=== PATIENT | female | born 1960 | race Caucasian/White ===

== ENCOUNTER 2016-07-07 10:30 | Outpatient (CLI) | payer MEDICAID ==
[~2016-07-07] VITALS: Ht 157.5 cm; Wt 58.6 kg
[2016-07-07] VITALS (10 sets, daily range): BP systolic 9–143; BP diastolic 61–75; PULSE 64–74; TEMP 97.1–98.4
[~2016-07-07 10:30] MED LIST: AMOXICILLIN875 MG PO; B-12 500 MCG PO; BIAXIN500 MG PO; CALCIUM + D 6001 TA1 PO; CALTRATE 600 +1 TAB PO; CEFTIN 250250 MG/TAB PO; CEFTIN500 MG PO; CELEBREX 200MG200 MG PO; CEPHALEXIN500 M1 PO; DOXYCYCLINE 10100 MG PO; ENBREL50 MG/ML; FISH OIL1000 MG PO; FISH OIL500 MG PO; FLAGYL 250250 MG/TAB PO; FLONASE NASAL S16 GM NS; FLOVENT DI50 MCG/Act IH; GAMUNEX-C1 GM/10 ML; HUMERA IJ; LIDODERM 5% PATC1 EA TP; MOBIC15 MG PO; MULTIPLE VITAMI1 TAB PO; MVI PO; NORCO 325 MG-51 TAB PO; OMNICEF 300MG300 MG PO; PLAQUENIL200 MG PO; PRIL40 PO; PRILOSEC 20MG20 MG PO; PRIVIGEN 100 M100 ML IV; PROAIR HFA0.09 MG/AC IH; PROBIOTIC FORMU1 CAP PO; PROBIOTIC-MAJOR PO; RELAFEN 50500 MG/TAB PO; RITUXAN 10100 MG/10; ROBITUSSIN-AC120 ML PO; TAMIFLU 75MG75 MG PO; VITAMIN B12500 MCG; VITAMIN C BUFF500 MG PO; VITAMIN C1 TAB PO; VITAMIN D1000 IU PO; ZANTAC 150MG T150 MG PO; ZANTAC PO; ZITHROMAX 250M250 MG PO; ZITHROMAX Z PA250 MG PO; ZITHROMAX500 M2 PO; ZOFRAN 4MG T4 MG/TAB PO; ZOFRAN ODT4 MG PO; ZYRTEC 10MG10 MG PO
== END 2016-07-07 18:00 | disposition home or self-care (01) ==
LOC: EUO 10:30
DX: D83.8 Other common variable immunodeficiencies (principal)
CPT/HCPCS: J1459

== ENCOUNTER → 2016-07-21 | Outpatient (CLI) | payer MEDICAID ==
[~2016-07-21] MED LIST changes: +COLESTID 1GM1 G PO; +ULTRAM 50MG TAB50 MG PO
== END ==
LOC: MC.RAD 10:40
DX: Z12.31 Encounter for screening mammogram for malignant neoplasm of breast (principal)

== ENCOUNTER → 2016-07-31 | Outpatient (CLI) | payer MEDICAID ==
[2016-07-31] VITALS (10 sets, daily range): BP systolic 98–129; BP diastolic 62–78; PULSE 61–81; TEMP 98–98.1
[~2016-07-31] VITALS: Ht 157.5 cm; Wt 56.8 kg
== END ==
LOC: EUO 07-28 09:30
DX: D83.8 Other common variable immunodeficiencies (principal)
CPT/HCPCS: J1459

== ENCOUNTER 2016-08-18 09:22 | Outpatient (CLI) | payer MEDICAID ==
[~2016-08-18] VITALS: Ht 157.5 cm; Wt 57.7 kg
[2016-08-18] VITALS (10 sets, daily range): BP systolic 96–121; BP diastolic 53–71; PULSE 61–82; TEMP 97.3–98.3
[~2016-08-18 09:22] MED LIST changes: -COLESTID 1GM1 G PO; -ULTRAM 50MG TAB50 MG PO
== END 2016-08-18 14:00 | disposition home or self-care (01) ==
LOC: EUO 09:22
DX: D83.8 Other common variable immunodeficiencies (principal)
CPT/HCPCS: J1459

== ENCOUNTER 2016-09-11 09:57 | Outpatient (CLI) | payer MEDICAID ==
[2016-09-11] VITALS (10 sets, daily range): BP systolic 96–115; BP diastolic 55–76; PULSE 60–76; TEMP 97.7
[~2016-09-11] VITALS: Ht 157.5 cm; Wt 55.5 kg
[~2016-09-11 09:57] MED LIST changes: -COLESTID 1GM1 G PO; -ULTRAM 50MG TAB50 MG PO
[2016-09-11] MEDS ORDERED: COLESTID 1GM1 G PO (11:12)
== END 2016-09-11 15:11 | disposition home or self-care (01) ==
LOC: EUO 09:57
DX: D83.8 Other common variable immunodeficiencies (principal)
CPT/HCPCS: J1459

== ENCOUNTER → 2016-09-11 | Outpatient (CLI) | payer MEDICAID ==
[~2016-09-11] MED LIST changes: +COLESTID 1GM1 G PO; +ULTRAM 50MG TAB50 MG PO
== END ==
LOC: COL.RAD 09:56
DX: Z53.9 Procedure and treatment not carried out, unspecified reason (principal)

== ENCOUNTER → 2016-09-18 | Outpatient (CLI) | payer MEDICAID ==
[~2016-09-18] MED LIST changes: +COLESTID 1GM1 G PO; +ULTRAM 50MG TAB50 MG PO
== END ==
LOC: COL.RAD 09:45
DX: R10.13 Epigastric pain (principal)

== ENCOUNTER 2016-09-24 11:12 | Emergency (ER) | payer MEDICAID ==
[~2016-09-24] VITALS: Ht 157.5 cm; Wt 54.5 kg
[~2016-09-24 11:12] MED LIST changes: -ULTRAM 50MG TAB50 MG PO
[2016-09-24 11:18] VITALS: TEMP 99.4
[2016-09-24] MEDS ORDERED: ULTRAM 50MG TAB50 MG PO (13:23)
[2016-09-24] MEDS ORDERED: ZITHROMAX 250M250 MG PO (13:23)
[2016-09-24 13:42] VITALS: BP 101/65; PULSE 103
== END 2016-09-24 13:00 | disposition home or self-care (01) ==
LOC: COL.ER 11:12
DX: J18.9 Pneumonia, unspecified organism (principal); F17.210 Nicotine dependence, cigarettes, uncomplicated; D83.9 Common variable immunodeficiency, unspecified; Z79.899 Other long term (current) drug therapy

== ENCOUNTER → 2016-10-06 | Outpatient (CLI) | payer MEDICAID ==
[~2016-10-06] MED LIST changes: +ULTRAM 50MG TAB50 MG PO
== END ==
LOC: COL.RAD 08:03
DX: R10.13 Epigastric pain (principal); R11.0 Nausea
CPT/HCPCS: A9537; J2805

== ENCOUNTER 2016-10-13 10:35 | Outpatient (CLI) | payer MEDICAID ==
[~2016-10-13] VITALS: Ht 157.5 cm; Wt 56.0 kg
[2016-10-13] VITALS (9 sets, daily range): BP systolic 97–112; BP diastolic 51–69; PULSE 65–83; TEMP 98
== END 2016-10-13 15:33 | disposition home or self-care (01) ==
LOC: EUO 10:35
DX: D83.9 Common variable immunodeficiency, unspecified (principal)
CPT/HCPCS: J1459

== ENCOUNTER 2016-11-10 12:34 | Outpatient (CLI) | payer MEDICAID ==
[2016-11-10] VITALS (10 sets, daily range): BP systolic 93–114; BP diastolic 58–73; PULSE 63–81; TEMP 97.9–98.7
[~2016-11-10] VITALS: Ht 157.5 cm; Wt 56.0 kg
== END 2016-11-10 17:45 | disposition home or self-care (01) ==
LOC: EUO 12:34
DX: Z01.89 Encounter for other specified special examinations (principal)
CPT/HCPCS: J1459

== ENCOUNTER 2017-02-23 11:00 | Outpatient (RCR) | payer MEDICAID ==
[2016-12-04] VITALS (10 sets, daily range): BP systolic 88–118; BP diastolic 53–80; PULSE 62–81; TEMP 97.4–97.9
[2016-12-22] VITALS (9 sets, daily range): BP systolic 97–113; BP diastolic 52–76; PULSE 60–75; TEMP 97.5–98.2
[2017-01-12] VITALS (7 sets, daily range): BP systolic 101–111; BP diastolic 62–76; PULSE 59–96; TEMP 97.8–98.2
[2017-02-02] VITALS (11 sets, daily range): BP systolic 90–110; BP diastolic 49–65; PULSE 60–87; TEMP 98–98.3
[~2017-02-23] VITALS: Ht 157.5 cm; Wt 59.8 kg
[2017-02-23] VITALS (10 sets, daily range): BP systolic 101–129; BP diastolic 58–98; PULSE 61–88; TEMP 96.8–98.8
== END 2017-03-04 ==
LOC: EUO
DX: D83.9 Common variable immunodeficiency, unspecified (principal)
CPT/HCPCS: J1459

== ENCOUNTER 2017-05-25 10:00 | Outpatient (RCR) | payer MEDICAID ==
[2017-03-16] VITALS (11 sets, daily range): BP systolic 99–119; BP diastolic 50–69; PULSE 48–76; TEMP 97.9
[2017-04-09 10:21] VITALS: BP 117/49; PULSE 63; TEMP 97.5
[2017-04-09 10:50] VITALS: BP 107/67; PULSE 67; TEMP 98.2
[2017-04-09 11:05] VITALS: BP 111/71; PULSE 65
[2017-04-09 11:20] VITALS: BP 116/64; PULSE 64
[2017-04-09 11:35] VITALS: BP 110/69; PULSE 58; TEMP 98.2
[2017-04-09 12:05] VITALS: BP 115/70; PULSE 60; TEMP 98.3
[2017-05-04] VITALS (10 sets, daily range): BP systolic 97–116; BP diastolic 39–74; PULSE 69–84; TEMP 98–98.4
[~2017-05-25] VITALS: Ht 157.5 cm; Wt 58.8 kg
[2017-05-25] VITALS (10 sets, daily range): BP systolic 84–113; BP diastolic 37–62; PULSE 65–85; TEMP 97.3–98.5
== END 2017-06-14 | disposition home or self-care (01) ==
LOC: EUO
DX: D83.9 Common variable immunodeficiency, unspecified (principal); Z88.1 Allergy status to other antibiotic agents; Z88.2 Allergy status to sulfonamides; Z88.8 Allergy status to other drugs, medicaments and biological substances
CPT/HCPCS: J1459; J1569

== ENCOUNTER 2017-06-15 10:23 | Outpatient (RCR) | payer MEDICAID ==
[2017-06-15] VITALS (9 sets, daily range): BP systolic 104–113; BP diastolic 61–73; PULSE 65–87; TEMP 97.8–98.6
[~2017-06-15] VITALS: Ht 157.5 cm; Wt 59.3 kg
== END 2017-06-15 14:39 | disposition still patient (30) ==
LOC: EUO 10:23
DX: D83.9 Common variable immunodeficiency, unspecified (principal)
CPT/HCPCS: J1569

== ENCOUNTER → 2017-07-10 | Outpatient (CLI) | payer MEDICAID | LOC: MC.RAD 12:51 | DX: Z12.31 Encounter for screening mammogram for malignant neoplasm of breast (principal) ==

== ENCOUNTER 2017-10-01 11:30 | Outpatient (RCR) | payer MEDICAID ==
[2017-07-06] VITALS (10 sets, daily range): BP systolic 95–128; BP diastolic 52–70; PULSE 66–90; TEMP 97.5–98.3
[2017-07-27] VITALS (10 sets, daily range): BP systolic 018–124; BP diastolic 52–73; PULSE 66–92; TEMP 97.3
[2017-08-20 12:45] VITALS: BP 97/60; PULSE 71; TEMP 98.2
[2017-08-20 13:00] VITALS: BP 110/64; PULSE 73; TEMP 98.2
[2017-08-20 13:15] VITALS: BP 100/65; PULSE 75; TEMP 98.2
[2017-08-20 13:45] VITALS: BP 101/61; PULSE 71; TEMP 98.2
[2017-08-20 14:45] VITALS: BP 94/53; PULSE 71; TEMP 98.2
[2017-08-20 15:35] VITALS: BP 95/46; PULSE 87; TEMP 98.2
[2017-09-07 12:44] VITALS: BP 109/54; PULSE 72; TEMP 98.2
[2017-09-07 13:00] VITALS: BP 100/60; PULSE 70
[2017-09-07 13:15] VITALS: BP 108/60; PULSE 70
[2017-09-07 13:30] VITALS: BP 118/76; PULSE 78
[~2017-10-01] VITALS: Ht 157.5 cm; Wt 58.2 kg
[2017-10-01] VITALS (9 sets, daily range): BP systolic 99–122; BP diastolic 56–80; PULSE 64–81; TEMP 97.6–98.1
== END 2017-10-04 ==
LOC: EUO
DX: D83.9 Common variable immunodeficiency, unspecified (principal); Z79.899 Other long term (current) drug therapy
CPT/HCPCS: J1459; J1569

== ENCOUNTER 2017-12-14 11:00 | Outpatient (RCR) | payer MEDICAID ==
[2017-10-26] VITALS (10 sets, daily range): BP systolic 94–108; BP diastolic 49–73; PULSE 69–84; TEMP 98–98.5
[2017-11-21] VITALS (11 sets, daily range): BP systolic 95–112; BP diastolic 45–82; PULSE 62–83; TEMP 97.6–98.1
[~2017-12-14] VITALS: Ht 157.5 cm; Wt 57.5 kg
[~2017-12-14 11:00] MED LIST changes: +VOLTAREN 50MG T50 MG PO
[2017-12-14 11:30] VITALS: BP 108/93; PULSE 71; TEMP 97.1
[2017-12-14 11:40] VITALS: BP 112/63; PULSE 74; TEMP 97
[2017-12-14 11:45] VITALS: BP 107/60; PULSE 64; TEMP 97
[2017-12-14 12:00] VITALS: BP 112/64; PULSE 73; TEMP 97
[2017-12-14 12:30] VITALS: BP 107/57; PULSE 73; TEMP 97
== END 2017-12-14 14:57 | disposition home or self-care (01) ==
LOC: EUO 11:00
DX: D83.9 Common variable immunodeficiency, unspecified (principal)
CPT/HCPCS: J1459

== ENCOUNTER → 2018-03-28 | Outpatient (CLI) | payer MEDICAID ==
[~2018-03-28] MED LIST changes: +BACTROBAN 22GM22 GM TP; +IMURAN 50MG TAB50 MG PO; +LEVSIN 0.10.125 MG/T PO; +TYLENOL 325MG325 MG PO
== END ==
LOC: COL.RAD 07:19
DX: D35.02 Benign neoplasm of left adrenal gland (principal); R16.1 Splenomegaly, not elsewhere classified; R10.2 Pelvic and perineal pain
CPT/HCPCS: Q9967

== ENCOUNTER 2018-04-09 10:00 | Outpatient (RCR) | payer MEDICAID ==
[2018-01-11 11:00] VITALS: BP 114/64; PULSE 70; TEMP 97.8
[2018-01-11 11:15] VITALS: BP 110/60; PULSE 70; TEMP 97.8
[2018-01-11 11:30] VITALS: BP 108/66; PULSE 76; TEMP 97.8
[2018-01-11 12:00] VITALS: BP 124/73; PULSE 83; TEMP 97.8
[2018-01-11 12:30] VITALS: BP 115/67; PULSE 78; TEMP 97.8
[2018-01-11 13:24] VITALS: BP 101/60; PULSE 70; TEMP 97.8
[2018-02-01 10:20] VITALS: BP 95/52; PULSE 82; TEMP 98
[2018-02-01 10:35] VITALS: BP 98/55; PULSE 81; TEMP 98
[2018-02-22] VITALS (7 sets, daily range): BP systolic 96–118; BP diastolic 50–64; PULSE 64–73; TEMP 97
[2018-03-19] VITALS (11 sets, daily range): BP systolic 85–110; BP diastolic 52–60; PULSE 73–91; TEMP 97.7–98.6
[2018-03-19 10:38] LABS: HEMATOCRIT 38.8 % (37.0-47.0); HEMOGLOBIN 12.8 g/dl (12.5-16.0); MEAN CELL VOLUME 90 fl (80.0-100.0); MEAN CORPUSCULAR HEMOGLOBIN 30 pg (27.0-31.0); MEAN CORPUSCULAR HGB CONC 33 g/dl (33.0-37.0); MEAN PLATELET VOLUME 10.9 fl (7.4-10.4); PLATELET COUNT 86 K/mm3 (130-400); RED BLOOD COUNT 4.33 M/mm3 (4.10-5.30); REDCELL DISTRIBUTION WIDTH-CV 12.9 % (11.5-14.5)
[2018-03-19 10:47] LABS: ALBUMIN 3.4 gm/dL (3.5-5.0); BILIRUBIN UNCONJUGATED 0.3 mg/dL (0.0-1.1); BILIRUBIN,DIRECT 0.2 mg/dL (0.0-0.4); BILIRUBIN,TOTAL 0.4 mg/dL (0.0-1.0); CALCIUM 8.3 mg/dL (8.4-10.2); CREATININE, serum 0.57 mg/dL (0.52-1.25); POTASSIUM 3.6 mmol/L (3.4-5.0); TOTAL PROTEIN 6.4 gm/dL (6.4-8.2)
[2018-03-19 11:43] LABS: BAND 9 % (0-10); LYMPHOCYTE 52 % (20.0-51.0); NEUTROPHILS 29 % (42.0-75.2); PLATELET ESTIMATE DECREASED (NORMAL)
[2018-03-20 08:21] LABS: PATHOLOGY DIFF REVIEW OK +
[2018-04-09] VITALS (9 sets, daily range): BP systolic 93–118; BP diastolic 55–68; PULSE 64–79; TEMP 97.3–98.6
[~2018-04-09] VITALS: Ht 157.5 cm; Wt 59.1 kg
== END 2018-04-11 | disposition home or self-care (01) ==
LOC: EUO
PROVIDERS: Family Medicine
DX: D83.9 Common variable immunodeficiency, unspecified (principal)
CPT/HCPCS: J1459

== ENCOUNTER 2018-09-27 10:00 | Outpatient (RCR) | payer MEDICAID ==
[2018-07-12] VITALS (11 sets, daily range): BP systolic 101–115; BP diastolic 50–77; PULSE 64–83; TEMP 97–97.7
[2018-07-12 10:20] LABS: BASO % 0.5 % (0.0-2.0); EOS % 0.8 % (0-4.0); GRAN # 2.5 (1.4-6.5); GRAN % 63.4 % (42.2-75.2); HEMATOCRIT 39.4 % (37.0-47.0); HEMOGLOBIN 13.6 g/dl (12.5-16.0); MEAN CELL VOLUME 87 fl (80.0-100.0); MEAN CORPUSCULAR HEMOGLOBIN 30 pg (27.0-31.0); MEAN CORPUSCULAR HGB CONC 35 g/dl (33.0-37.0); MEAN PLATELET VOLUME 10.6 fl (7.4-10.4); MONO # 0.4 (0.1-0.6); MONO % 9.3 % (1.7-9.3); PLATELET COUNT 116 K/mm3 (130-400); RED BLOOD COUNT 4.51 M/mm3 (4.10-5.30); REDCELL DISTRIBUTION WIDTH-CV 13.9 % (11.5-14.5)
[2018-07-12 10:31] LABS: BILIRUBIN UNCONJUGATED 0.2 mg/dL (0.0-1.1); BILIRUBIN,DIRECT 0.1 mg/dL (0.0-0.4); BILIRUBIN,TOTAL 0.3 mg/dL (0.0-1.0); CALCIUM 9.2 mg/dL (8.4-10.2); CREATININE, serum 0.54 mg/dL (0.52-1.25); TOTAL PROTEIN 6.8 gm/dL (6.4-8.2)
[2018-08-09] VITALS (10 sets, daily range): BP systolic 99–129; BP diastolic 62–73; PULSE 70–90; TEMP 97–97.4
[2018-08-09 10:30] LABS: BASO % 0.3 % (0.0-2.0); EOS % 0.6 % (0-4.0); GRAN % 71.1 % (42.2-75.2); HEMATOCRIT 42.8 % (37.0-47.0); HEMOGLOBIN 14.6 g/dl (12.5-16.0); LYMPH # 1.5 (1.2-3.4); LYMPH % 21.2 % (20.0-51.0); MEAN CELL VOLUME 90 fl (80.0-100.0); MEAN CORPUSCULAR HEMOGLOBIN 31 pg (27.0-31.0); MEAN CORPUSCULAR HGB CONC 34 g/dl (33.0-37.0); MEAN PLATELET VOLUME 11.1 fl (7.4-10.4); MONO # 0.5 (0.1-0.6); MONO % 6.4 % (1.7-9.3); PLATELET COUNT 139 K/mm3 (130-400); RED BLOOD COUNT 4.78 M/mm3 (4.10-5.30); REDCELL DISTRIBUTION WIDTH-CV 13.3 % (11.5-14.5)
[2018-08-09 10:36] LABS: ALBUMIN 4.4 gm/dL (3.5-5.0); BILIRUBIN UNCONJUGATED 0.4 mg/dL (0.0-1.1); BILIRUBIN,DIRECT 0.2 mg/dL (0.0-0.4); BILIRUBIN,TOTAL 0.6 mg/dL (0.0-1.0); CALCIUM 9.5 mg/dL (8.4-10.2); CREATININE, serum 0.61 mg/dL (0.52-1.25); POTASSIUM 4.4 mmol/L (3.4-5.0); TOTAL PROTEIN 7.6 gm/dL (6.4-8.2)
--- NOTE | 2018-08-09 14:20 | NUR ---
Pt tye IGG well. Pt discharged per ambulation.
[2018-09-06 10:12] LABS: BASO % 0.9 % (0.0-2.0); EOS % 0.9 % (0-4.0); GRAN # 2.8 (1.4-6.5); GRAN % 61.8 % (42.2-75.2); HEMATOCRIT 42.1 % (37.0-47.0); HEMOGLOBIN 14.4 g/dl (12.5-16.0); LYMPH # 1.3 (1.2-3.4); LYMPH % 29.2 % (20.0-51.0); MEAN CELL VOLUME 91 fl (80.0-100.0); MEAN CORPUSCULAR HEMOGLOBIN 31 pg (27.0-31.0); MEAN CORPUSCULAR HGB CONC 34 g/dl (33.0-37.0); MEAN PLATELET VOLUME 10.8 fl (7.4-10.4); MONO # 0.3 (0.1-0.6); MONO % 7.2 % (1.7-9.3); PLATELET COUNT 125 K/mm3 (130-400); RED BLOOD COUNT 4.61 M/mm3 (4.10-5.30); REDCELL DISTRIBUTION WIDTH-CV 13.2 % (11.5-14.5)
[2018-09-06 10:23] LABS: ALBUMIN 4.3 gm/dL (3.5-5.0); CREATININE, serum 0.6 mg/dL (0.52-1.25); POTASSIUM 3.9 mmol/L (3.4-5.0); TOTAL PROTEIN 7.2 gm/dL (6.4-8.2)
[2018-09-06 10:31] VITALS: BP 107/51; PULSE 82; TEMP 97.4
[2018-09-06 10:33] LABS: BILIRUBIN UNCONJUGATED 0.3 mg/dL (0.0-1.1); BILIRUBIN,DIRECT 0.1 mg/dL (0.0-0.4); BILIRUBIN,TOTAL 0.4 mg/dL (0.0-1.0)
[2018-09-06 10:45] VITALS: BP 96/65; PULSE 79; TEMP 97.4
[2018-09-06 11:30] VITALS: BP 109/69; PULSE 77; TEMP 97.4
[2018-09-06 12:00] VITALS: BP 110/65; PULSE 72; TEMP 97.4
[2018-09-06 13:00] VITALS: BP 99/66; PULSE 78; TEMP 97.4
[2018-09-06 13:34] VITALS: BP 99/64; PULSE 80; TEMP 97.4
[~2018-09-27] VITALS: Ht 157.5 cm; Wt 59.6 kg
[2018-09-27 10:00] VITALS: BP 108/38; PULSE 80; TEMP 97.6
[2018-09-27 10:18] LABS: BASO % 0.4 % (0.0-2.0); EOS % 0.6 % (0-4.0); GRAN % 60.7 % (42.2-75.2); HEMATOCRIT 44.1 % (37.0-47.0); LYMPH # 1.5 (1.2-3.4); LYMPH % 30.7 % (20.0-51.0); MEAN CELL VOLUME 91 fl (80.0-100.0); MEAN CORPUSCULAR HEMOGLOBIN 31 pg (27.0-31.0); MEAN CORPUSCULAR HGB CONC 34 g/dl (33.0-37.0); MEAN PLATELET VOLUME 10.9 fl (7.4-10.4); MONO # 0.4 (0.1-0.6); MONO % 7.4 % (1.7-9.3); PLATELET COUNT 128 K/mm3 (130-400); RED BLOOD COUNT 4.86 M/mm3 (4.10-5.30); REDCELL DISTRIBUTION WIDTH-CV 12.7 % (11.5-14.5)
[2018-09-27 10:27] LABS: ALBUMIN 4.5 gm/dL (3.5-5.0); CALCIUM 9.5 mg/dL (8.4-10.2); CREATININE, serum 0.59 (0.52-1.25); TOTAL PROTEIN 7.9 gm/dL (6.4-8.2)
[2018-09-27 10:44] LABS: BILIRUBIN UNCONJUGATED 0.4 mg/dL (0.0-1.1); BILIRUBIN,TOTAL 0.4 mg/dL (0.0-1.0)
[2018-09-27 13:05] VITALS: BP 97/78; PULSE 88; TEMP 97.6
--- NOTE | 2018-09-27 13:10 | NUR ---
PT TOLERATED IGG INFUSION WITHOUT ISSUE. VS UNHOOKED WHEN PATIENT WENT TO USE THE RESTROOM.
== END 2018-10-10 | disposition home or self-care (01) ==
LOC: EUO
PROVIDERS: Family Medicine
DX: D83.9 Common variable immunodeficiency, unspecified (principal)
CPT/HCPCS: J1459

== ENCOUNTER 2018-12-27 11:00 | Outpatient (RCR) | payer MEDICAID ==
[2018-10-25] VITALS (7 sets, daily range): BP systolic 108–117; BP diastolic 67–82; PULSE 65–79; TEMP 97.3–97.5
[2018-10-25 10:26] LABS: BASO % 0.4 % (0.0-2.0); EOS % 0.4 % (0-4.0); GRAN # 3.2 (1.4-6.5); GRAN % 68.8 % (42.2-75.2); HEMATOCRIT 42.5 % (37.0-47.0); HEMOGLOBIN 14.3 g/dl (12.5-16.0); LYMPH # 1.1 (1.2-3.4); MEAN CELL VOLUME 91 fl (80.0-100.0); MEAN CORPUSCULAR HEMOGLOBIN 31 pg (27.0-31.0); MEAN CORPUSCULAR HGB CONC 34 g/dl (33.0-37.0); MEAN PLATELET VOLUME 10.5 fl (7.4-10.4); MONO # 0.3 (0.1-0.6); MONO % 6.2 % (1.7-9.3); PLATELET COUNT 152 K/mm3 (130-400); RED BLOOD COUNT 4.68 M/mm3 (4.10-5.30); REDCELL DISTRIBUTION WIDTH-CV 12.3 % (11.5-14.5)
[2018-10-25 10:33] LABS: ALBUMIN 4.1 gm/dL (3.5-5.0); BILIRUBIN UNCONJUGATED 0.2 mg/dL (0.0-1.1); BILIRUBIN,DIRECT 0.1 mg/dL (0.0-0.4); BILIRUBIN,TOTAL 0.2 mg/dL (0.0-1.0); CALCIUM 9.2 mg/dL (8.4-10.2); CREATININE, serum 0.57 (0.52-1.25); POTASSIUM 4.1 mmol/L (3.4-5.0); TOTAL PROTEIN 7.3 gm/dL (6.4-8.2)
--- NOTE | 2018-11-15 10:00 | NUR ---
New order requested from [facility] and Dr. Urbina's office notified to cosign and fax on to [facility].
--- NOTE | 2018-11-15 11:30 | NUR ---
VM left with [facility] and Dr. Urbina's office checking on status of orders.
--- NOTE | 2018-11-15 12:50 | NUR ---
Notified by Razia at Dr. Urbina's office that pt need's to have lab work done before [facility] will sent the IGG orders. Pt has appt with Dr. Urbina today at 1530 and labs will be drawn there. Pt updated on plan and discharged per ambulation.
[2018-12-06] VITALS (9 sets, daily range): BP systolic 97–112; BP diastolic 56–70; PULSE 66–81; TEMP 97.9–98.2
[~2018-12-27] VITALS: Ht 157.5 cm; Wt 58.3 kg
[2018-12-27] VITALS (10 sets, daily range): BP systolic 81–108; BP diastolic 34–72; PULSE 63–90; TEMP 97.2–98.3
[2018-12-27 11:28] LABS: BASO % 0.4 % (0.0-2.0); EOS % 0.2 % (0-4.0); GRAN # 3.9 (1.4-6.5); GRAN % 69.1 % (42.2-75.2); HEMATOCRIT 40.8 % (37.0-47.0); HEMOGLOBIN 13.9 g/dl (12.5-16.0); LYMPH # 1.3 (1.2-3.4); LYMPH % 22.7 % (20.0-51.0); MEAN CELL VOLUME 90 fl (80.0-100.0); MEAN CORPUSCULAR HEMOGLOBIN 31 pg (27.0-31.0); MEAN CORPUSCULAR HGB CONC 34 g/dl (33.0-37.0); MEAN PLATELET VOLUME 10.3 fl (7.4-10.4); MONO # 0.4 (0.1-0.6); MONO % 7.4 % (1.7-9.3); PLATELET COUNT 154 K/mm3 (130-400); RED BLOOD COUNT 4.55 M/mm3 (4.10-5.30); REDCELL DISTRIBUTION WIDTH-CV 12.8 % (11.5-14.5)
[2018-12-27 11:41] LABS: ALBUMIN 3.8 gm/dL (3.5-5.0); BILIRUBIN,TOTAL 0.5 mg/dL (0.0-1.0); CALCIUM 9.1 mg/dL (8.4-10.2); CREATININE, serum 0.59 (0.52-1.25); POTASSIUM 3.9 mmol/L (3.4-5.0); TOTAL PROTEIN 6.9 gm/dL (6.4-8.2)
[2018-12-27 12:24] LABS: BILIRUBIN UNCONJUGATED 0.3 mg/dL (0.0-1.1); BILIRUBIN,DIRECT 0.1 mg/dL (0.0-0.4)
[2019-01-24] MEDS ORDERED: MASON NATURAL S1 CAP PO (10:57)
[2019-01-24] MEDS ORDERED: BARACLUDE0.5 MG PO (10:59)
[2019-01-24] MEDS ORDERED: GLUCOSAMINE & C1 CA2 PO (11:00)
[2019-01-24] MEDS ORDERED: NEURONTIN100 MG/CAP PO (11:01)
[2019-01-24] MEDS ORDERED: PERCOCET 325 MG1 TA2 PO (11:01)
== END 2019-01-23 | disposition home or self-care (01) ==
LOC: EUO
PROVIDERS: Family Medicine
DX: Z51.81 Encounter for therapeutic drug level monitoring (principal); D83.9 Common variable immunodeficiency, unspecified; M06.00 Rheumatoid arthritis without rheumatoid factor, unspecified site
CPT/HCPCS: J1459

== ENCOUNTER 2019-04-11 10:00 | Outpatient (RCR) | payer MEDICAID ==
[2019-01-24] VITALS (10 sets, daily range): BP systolic 93–108; BP diastolic 51–78; PULSE 63–82; TEMP 97.4
[2019-01-24 10:23] LABS: BASO % 0.5 % (0.0-2.0); EOS % 0.5 % (0-4.0); GRAN # 2.5 (1.4-6.5); GRAN % 61.2 % (42.2-75.2); HEMATOCRIT 41.9 % (37.0-47.0); HEMOGLOBIN 13.9 g/dl (12.5-16.0); LYMPH # 1.2 (1.2-3.4); LYMPH % 29.4 % (20.0-51.0); MEAN CELL VOLUME 92 fl (80.0-100.0); MEAN CORPUSCULAR HEMOGLOBIN 30 pg (27.0-31.0); MEAN CORPUSCULAR HGB CONC 33 g/dl (33.0-37.0); MEAN PLATELET VOLUME 10.4 fl (7.4-10.4); MONO # 0.3 (0.1-0.6); MONO % 8.2 % (1.7-9.3); PLATELET COUNT 122 K/mm3 (130-400); RED BLOOD COUNT 4.58 M/mm3 (4.10-5.30); REDCELL DISTRIBUTION WIDTH-CV 13.4 % (11.5-14.5)
[2019-01-24 10:49] LABS: ALBUMIN 4.1 gm/dL (3.5-5.0); BILIRUBIN,TOTAL 0.3 mg/dL (0.0-1.0); CALCIUM 9.2 mg/dL (8.4-10.2); CREATININE, serum 0.51 (0.52-1.25); POTASSIUM 3.8 mmol/L (3.4-5.0)
[2019-01-24 11:01] LABS: BILIRUBIN UNCONJUGATED 0.3 mg/dL (0.0-1.1)
[2019-02-14] VITALS (8 sets, daily range): BP systolic 107–117; BP diastolic 71–81; PULSE 72–96; TEMP 98–98.2
[2019-02-14 11:32] LABS: BASO % 0.5 % (0.0-2.0); EOS % 0.5 % (0-4.0); GRAN # 4.6 (1.4-6.5); GRAN % 69.7 % (42.2-75.2); HEMATOCRIT 40.7 % (37.0-47.0); HEMOGLOBIN 13.6 g/dl (12.5-16.0); LYMPH # 1.4 (1.2-3.4); LYMPH % 21.9 % (20.0-51.0); MEAN CELL VOLUME 90 fl (80.0-100.0); MEAN CORPUSCULAR HEMOGLOBIN 30 pg (27.0-31.0); MEAN CORPUSCULAR HGB CONC 33 g/dl (33.0-37.0); MEAN PLATELET VOLUME 10.2 fl (7.4-10.4); MONO # 0.5 (0.1-0.6); MONO % 7.2 % (1.7-9.3); PLATELET COUNT 130 K/mm3 (130-400); RED BLOOD COUNT 4.53 M/mm3 (4.10-5.30)
[2019-02-14 11:48] LABS: ALBUMIN 4.2 gm/dL (3.5-5.0); BILIRUBIN,TOTAL 0.4 mg/dL (0.0-1.0); CALCIUM 8.8 mg/dL (8.4-10.2); CREATININE, serum 0.52 (0.52-1.25)
[2019-02-14 12:00] LABS: ALBUMIN 4.1 gm/dL (3.5-5.0); BILIRUBIN UNCONJUGATED 0.3 mg/dL (0.0-1.1); BILIRUBIN,TOTAL 0.3 mg/dL (0.0-1.0)
--- NOTE | 2019-02-14 12:42 | NUR ---
report given to Meghana Mendenhall.
[2019-03-14] VITALS (9 sets, daily range): BP systolic 101–113; BP diastolic 59–79; PULSE 62–76; TEMP 97.4–98.6
[2019-03-14 09:57] LABS: BASO % 0.4 % (0.0-2.0); EOS % 0.6 % (0-4.0); GRAN # 3.2 (1.4-6.5); GRAN % 65.9 % (42.2-75.2); HEMOGLOBIN 14.2 g/dl (12.5-16.0); LYMPH # 1.2 (1.2-3.4); LYMPH % 25.4 % (20.0-51.0); MEAN CELL VOLUME 91 fl (80.0-100.0); MEAN CORPUSCULAR HEMOGLOBIN 31 pg (27.0-31.0); MEAN CORPUSCULAR HGB CONC 34 g/dl (33.0-37.0); MEAN PLATELET VOLUME 10.3 fl (7.4-10.4); MONO # 0.4 (0.1-0.6); MONO % 7.5 % (1.7-9.3); PLATELET COUNT 128 K/mm3 (130-400); RED BLOOD COUNT 4.61 M/mm3 (4.10-5.30)
[2019-03-14 10:05] LABS: ALBUMIN 4.3 gm/dL (3.5-5.0); BILIRUBIN UNCONJUGATED 0.4 mg/dL (0.0-1.1); BILIRUBIN,TOTAL 0.4 mg/dL (0.0-1.0); CALCIUM 9.3 mg/dL (8.4-10.2); CREATININE, serum 0.56 (0.52-1.25); TOTAL PROTEIN 7.1 gm/dL (6.4-8.2)
[2019-04-11] VITALS (10 sets, daily range): BP systolic 98–105; BP diastolic 61–69; PULSE 65–86; TEMP 97.6–98.4
[~2019-04-11] VITALS: Ht 157.5 cm; Wt 57.0 kg
[~2019-04-11 10:00] MED LIST changes: +BARACLUDE0.5 MG PO; +GLUCOSAMINE & C1 CA2 PO; +MASON NATURAL S1 CAP PO; +NEURONTIN100 MG/CAP PO; +PERCOCET 325 MG1 TA2 PO
[2019-04-11 10:23] LABS: BASO % 0.4 % (0.0-2.0); EOS % 0.4 % (0-4.0); GRAN # 3.5 (1.4-6.5); GRAN % 68.3 % (42.2-75.2); HEMATOCRIT 43.3 % (37.0-47.0); HEMOGLOBIN 14.8 g/dl (12.5-16.0); LYMPH # 1.1 (1.2-3.4); LYMPH % 20.8 % (20.0-51.0); MEAN CELL VOLUME 90 fl (80.0-100.0); MEAN CORPUSCULAR HEMOGLOBIN 31 pg (27.0-31.0); MEAN CORPUSCULAR HGB CONC 34 g/dl (33.0-37.0); MEAN PLATELET VOLUME 10.6 fl (7.4-10.4); MONO # 0.5 (0.1-0.6); MONO % 9.7 % (1.7-9.3); PLATELET COUNT 130 K/mm3 (130-400); RED BLOOD COUNT 4.82 M/mm3 (4.10-5.30); REDCELL DISTRIBUTION WIDTH-CV 13.2 % (11.5-14.5)
[2019-04-11 10:35] LABS: ALBUMIN 4.3 gm/dL (3.5-5.0); BILIRUBIN,TOTAL 0.4 mg/dL (0.0-1.0); CALCIUM 9.7 mg/dL (8.4-10.2); CREATININE, serum 0.58 (0.52-1.25); POTASSIUM 3.6 mmol/L (3.4-5.0); TOTAL PROTEIN 7.4 gm/dL (6.4-8.2)
[2019-04-11 10:47] LABS: BILIRUBIN UNCONJUGATED 0.3 mg/dL (0.0-1.1)
== END 2019-04-24 | disposition home or self-care (01) ==
LOC: EUO
PROVIDERS: Family Medicine; Internal Medicine
DX: Z51.81 Encounter for therapeutic drug level monitoring (principal); D83.9 Common variable immunodeficiency, unspecified; M06.00 Rheumatoid arthritis without rheumatoid factor, unspecified site; Z79.899 Other long term (current) drug therapy
CPT/HCPCS: J1459

== ENCOUNTER → 2019-05-05 | Outpatient (CLI) | payer MEDICAID | LOC: COL.PUL 13:40 | DX: D83.9 Common variable immunodeficiency, unspecified (principal) ==

== ENCOUNTER 2019-05-30 10:00 | Outpatient (RCR) | payer MEDICAID ==
[2019-05-02 10:20] LABS: BASO % 0.4 % (0.0-2.0); EOS % 0.2 % (0-4.0); GRAN # 3.6 (1.4-6.5); GRAN % 70.1 % (42.2-75.2); HEMATOCRIT 41.9 % (37.0-47.0); HEMOGLOBIN 14.1 g/dl (12.5-16.0); LYMPH # 1.1 (1.2-3.4); LYMPH % 20.7 % (20.0-51.0); MEAN CELL VOLUME 92 fl (80.0-100.0); MEAN CORPUSCULAR HEMOGLOBIN 31 pg (27.0-31.0); MEAN CORPUSCULAR HGB CONC 34 g/dl (33.0-37.0); MEAN PLATELET VOLUME 10.3 fl (7.4-10.4); MONO # 0.4 (0.1-0.6); MONO % 8.2 % (1.7-9.3); PLATELET COUNT 134 K/mm3 (130-400); RED BLOOD COUNT 4.57 M/mm3 (4.10-5.30); REDCELL DISTRIBUTION WIDTH-CV 13.2 % (11.5-14.5)
[2019-05-02 10:30] LABS: ALBUMIN 4.3 gm/dL (3.5-5.0); BILIRUBIN,TOTAL 0.4 mg/dL (0.0-1.0); CALCIUM 9.2 mg/dL (8.4-10.2); CREATININE, serum 0.53 (0.52-1.25); POTASSIUM 3.7 mmol/L (3.4-5.0); TOTAL PROTEIN 7.4 gm/dL (6.4-8.2)
--- NOTE | 2019-05-02 11:20 | NUR ---
Medication not ready for infusion for today. Rescheduled appointment
[2019-05-06 15:45] LABS: LIVER FIBROSIS APOLIPOPROTEIN 188 mg/dL (>=140)
[2019-05-07 09:01] LABS: LIVER FIBROSIS ALPHA 2 MACRO 258 mg/dL (())
[2019-05-08 05:42] LABS: LF NECROINFLAMMAT ACT GRADE SEE PCI FOR RESULTS; LF NECROINFLAMMAT ACT SCORE SEE PCI FOR RESULTS
[2019-05-09] VITALS (9 sets, daily range): BP systolic 87–100; BP diastolic 51–61; PULSE 65–86; TEMP 97.7–97.9
[~2019-05-30] VITALS: Ht 157.5 cm; Wt 57.7 kg
[2019-05-30] VITALS (9 sets, daily range): BP systolic 101–114; BP diastolic 65–76; PULSE 72–87; TEMP 97–98.7
[~2019-05-30 10:00] MED LIST changes: -RITUXAN 10100 MG/10; +RITUXAN 10100 MG/10 IJ
[2019-05-30 10:36] LABS: BASO % 0.5 % (0.0-2.0); EOS % 0.5 % (0-4.0); GRAN # 2.6 (1.4-6.5); GRAN % 66.9 % (42.2-75.2); HEMATOCRIT 41.9 % (37.0-47.0); HEMOGLOBIN 14.3 g/dl (12.5-16.0); LYMPH # 0.9 (1.2-3.4); MEAN CELL VOLUME 90 fl (80.0-100.0); MEAN CORPUSCULAR HEMOGLOBIN 31 pg (27.0-31.0); MEAN CORPUSCULAR HGB CONC 34 g/dl (33.0-37.0); MEAN PLATELET VOLUME 9.7 fl (7.4-10.4); MONO # 0.3 (0.1-0.6); MONO % 7.8 % (1.7-9.3); PLATELET COUNT 149 K/mm3 (130-400); RED BLOOD COUNT 4.68 M/mm3 (4.10-5.30); REDCELL DISTRIBUTION WIDTH-CV 12.8 % (11.5-14.5)
[2019-05-30 10:47] LABS: ALBUMIN 4.3 gm/dL (3.5-5.0); CALCIUM 9.2 mg/dL (8.4-10.2); CREATININE, serum 0.53 (0.52-1.25); POTASSIUM 4.1 mmol/L (3.4-5.0); TOTAL PROTEIN 7.3 gm/dL (6.4-8.2)
[2019-05-30 10:55] LABS: BILIRUBIN UNCONJUGATED 0.2 mg/dL (0.0-1.1); BILIRUBIN,DIRECT 0.1 mg/dL (0.0-0.4); BILIRUBIN,TOTAL 0.2 mg/dL (0.0-1.0)
== END 2019-05-30 14:56 | disposition home or self-care (01) ==
LOC: EUO 10:00
PROVIDERS: Family Medicine
DX: D83.9 Common variable immunodeficiency, unspecified (principal); Z79.899 Other long term (current) drug therapy
CPT/HCPCS: J1459

== ENCOUNTER 2020-03-12 11:30 | Outpatient (RCR) | payer MEDICAID ==
[2020-01-30] VITALS (7 sets, daily range): BP systolic 95–105; BP diastolic 60–66; PULSE 68–83; TEMP 97.8
[2020-02-20] VITALS (10 sets, daily range): BP systolic 99–115; BP diastolic 52–71; PULSE 70–82; TEMP 98.2
--- NOTE | 2020-02-20 16:10 | NUR ---
IV DC'd with catheter intact, and bleeding controlled at site. She ambulates from dept with steady gait following infusion.
[~2020-03-12] VITALS: Ht 157.5 cm; Wt 56.5 kg
[2020-03-12] VITALS (9 sets, daily range): BP systolic 99–111; BP diastolic 59–70; PULSE 71–87; TEMP 98.2
[~2020-03-12 11:30] MED LIST changes: +LYRICA 50MG CAP50 MG PO
== END 2020-03-19 09:24 | disposition home or self-care (01) ==
LOC: EUO 11:30
DX: D83.9 Common variable immunodeficiency, unspecified (principal); Z79.899 Other long term (current) drug therapy
CPT/HCPCS: J1459

== ENCOUNTER 2020-04-27 11:30 | Outpatient (RCR) | payer MEDICAID ==
[2020-04-02] VITALS (9 sets, daily range): BP systolic 105–123; BP diastolic 63–73; PULSE 65–71; TEMP 97.8–98
[2020-04-27] VITALS (9 sets, daily range): BP systolic 104–116; BP diastolic 65–73; PULSE 69–77; TEMP 97.3
[~2020-04-27] VITALS: Ht 157.5 cm; Wt 55.6 kg
--- NOTE | 2020-05-28 10:05 | NUR ---
Patient daughter called and cancelled today's infusion.per daughter pt will get further infusions at [facility].
== END 2020-05-28 10:15 | disposition home or self-care (01) ==
LOC: EUO 11:30
DX: D83.9 Common variable immunodeficiency, unspecified (principal); Z79.899 Other long term (current) drug therapy
CPT/HCPCS: J1459

== ENCOUNTER 2020-12-25 20:37 | Emergency (ER) | payer MEDICAID ==
[~2020-12-25] VITALS: Ht 157.5 cm; Wt 57.3 kg
[2020-12-25 21:01] VITALS: TEMP 98.1
[2020-12-25] MEDS ORDERED: PERCOCET 325 MG1 TA2 PO (21:48)
[2020-12-25 22:15] VITALS: BP 123/70; PULSE 71
== END 2020-12-25 22:30 | disposition home or self-care (01) ==
LOC: COL.ER 20:37
DX: R09.1 Pleurisy (principal)

== ENCOUNTER → 2021-04-07 | Outpatient (CLI) | payer MEDICAID | LOC: MC.RAD 02-11 10:45 | DX: Z12.31 Encounter for screening mammogram for malignant neoplasm of breast (principal) ==

== ENCOUNTER → 2022-08-18 | Outpatient (CLI) | payer MEDICAID | LOC: COL.PUL 07:20 | DX: J84.9 Interstitial pulmonary disease, unspecified (principal) ==